=== PATIENT | male | born 1985 | race Caucasian/White ===

== ENCOUNTER 2016-09-26 13:56 | Emergency (ER) | payer SELFPAY ==
[2016-09-26 14:38] LABS: Hematocrit 44.7 % (42.0-52.0); Hemoglobin 14.8 gm/dL (13.5-18.0); Mean Cell Volume 88.3 fl (78-100); Mean Corpuscular Hemoglobin 29.2 pg (27-31); Mean Corpuscular Hgb Conc 33.1 g/dl (32-36); Mean Platelet Volume 9.9 fl (6.0-9.5); Neutrophil # 8.8 K/mm3 (1.3-6.0); Neutrophil % 72.5 % (42-75.0); Platelet Count 346 K/mm3 (150-450); Red Blood Count 5.06 M/mm3 (4.7-6.0); Red Cell Distribution Width 13.7 % (11.5-14.0); White Blood Count 12.2 K/mm3 (4.0-10.5)
[2016-09-26 14:40] LABS: Urine Bilirubin Negative (NEGATIVE); Urine Blood Negative /ul (NEGATIVE); Urine Ketone Negative (NEGATIVE); Urine Nitrite Negative (NEGATIVE); Urine Protein Negative (NEGATIVE); Urine Specific Gravity >=1.030 SP.GR. (1.005-1.030); Urine Urobilinogen Normal (NORMAL)
[2016-09-26 14:47] LABS: Urine Appearance Clear; Urine Bacteria None Seen; Urine Color Yellow; Urine RBC None Seen /hpf (0-5)
--- NOTE | 2016-09-26 14:47 | ERNOTE ---
<Juan J Gastelum - Last Filed: 09/26/16 19:55> Psychological HPI - General Chief Complaint: Psychiatric Problem Source: Reports: patient Exam Limitations: Reports: no limitations - Immun/Allergies/Home Medications Allergies/Adverse Reactions: Allergies No Known Allergies Allergy (Verified 09/26/16 14:40) Home Medications: HOME MEDICATIONS Methylphenidate HCl [Ritalin] 40 mg PO DAILY 09/26/16 [Last Taken Unknown] - History of Present Illness Narrative: Patient presents with depression, very tearful and thoughts of suicide. 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 He is very distraught over this situation as he has 2 daughters at home. Time Seen by Provider: 09/26/16 14:17 Arrived by: Reports: private car Onset/duration: Reports: gradual onset Intent: Reports: suicide - pt has been considering suicide, no prior thoughts- suicide Situational Problems: Reports: spouse Associated Symptoms: Reports: depressed, suicidal thoughts Review of Systems - Review of Systems Constitutional: Present: See HPI EYE: Present: no symptoms reported ENT: Present: no symptoms reported Respiratory: Present: no symptoms reported Cardiology: Present: no symptoms reported Gastrointestinal/Abdominal: Present: no symptoms reported Genitourinary: Present: no symptoms reported Musculoskeletal: Present: no symptoms reported Skin: Present: no symptoms reported Neurological: Present: no symptoms reported Endocrine: Present: no symptoms reported Hematologic/Lymphatic: Present: no symptoms reported Psych: Present: depressed, emotional problems, other - amphetamine abuse by history - Patient's Past Medical History Patient History - Cardiac/Respiratory: No pertinent hx Patient History - Cancer: No Hx of Cancer Patient History - Other: None - Social History Living Situations: other Abuse History: Hx of Substance Use - methamphetamine Psych History: No pertinent hx Smoking Status: Current every day smoker Have you smoked in the past 12 months: Yes Alcohol Use: rarely Drug Use: meth - Immunizations Immunizations Up to Date: Yes Hx Pneumococcal Vaccination: No History of Influenza Vaccine: No Physical Exam - Physical Exam General Appearance: Present: wd/wn, alert, severe distress, crying Eye Exam: Normal inspection: bilateral, PERRL: bilateral Ears, Nose, Throat: Present: normal ENT inspection, H, normal pharynx Neck: Present: normal inspection, nontender Respiratory: Present: no respiratory distress, normal breath sounds, no accessory muscle use, chest nontender, lungs clear Cardiovascular/Chest: Present: regular rate, rhythm, no murmur, normal peripheral pulses Gastrointestinal/Abdominal: Present: normal bowel sounds, nontender, nondistended, soft, no organomegaly Rectal Exam: Present: deferred Back Exam: Present: normal inspection, normal range of motion Extremity Exam: Present: normal inspection, non-tender, no edema, normal range of motion Neurological Exam: Present: alert, oriented, other - pt is depressed and tearful Skin Exam: Present: normal color, warm/dry Lymphatic Exam: Present: no adenopathy ED Progress - Results and Orders Patient's Lab Results:: I have reviewed the patient's lab results. - Vital Signs Patient's Vital Signs:: I have reviewed the patient's vital signs. Vital Signs: Vital Signs 09/26/16 14:01 Temperature 36.7 C Pulse Rate 82 Respiratory 16 Rate Blood Pressure 137/64 O2 Sat by Pulse 96 Oximetry - Progress/Reassessment Chief Complaint: Psychiatric Problem Progress:: Re-examined Progress Note-Subjective: 09/26/16 18:51 He had a counselor from [facility] may come and examine the patient as well as talked to the mother. Patient indicated to both the counselor, Cynthia, and the mother that he is still considering suicide. Mother related that he had a younger sister who committed suicide approximately 10 years ago so there is a strong family history of suicide and suicidal ideation. Patient will need to be admitted to an inpatient unit for further evaluation and probably starting some form of medication to help with his depression. Patient may very well need to be a court ordered committal and we are calling around to find where he can get a bed and get the treatment that he requires. He did have a court date today where he was charged with domestic abuse and has a no contact order brought by his and this is the stress over the precipitated all these events today. - Transfer of Care Physician Sign Out: Juan J Gastelum Receiving Physician: Epifanio Good Plan - Plan Plan: We are starting to call around to find the closest facility where the patient can be admitted and evaluated by psychiatric services. Upon finding a facility that will take him I suspect will have to go forward with a court ordered committal as he has shown some desire to leave the ED. His mother does not feel comfortable taking him home at this point and she is also requesting that he get at least a psychiatric evaluation and started on some medications. Departure Clinical Impression: Suicidal ideation, Substance abuse in remission Depression Qualifiers: Depression Type: reactive depression Qualified Code(s): F32.9 - Major depressive disorder, single episode, unspecified - Departure Disposition: [facility] Condition: Good <Epifanio Good - Last Filed: 09/26/16 23:58> ED Progress - Vital Signs Vital Signs: Vital Signs 09/26/16 18:56 Temperature 36.7 C Pulse Rate 80 Respiratory 16 Rate Blood Pressure 129/64 O2 Sat by Pulse 97 Oximetry - Progress/Reassessment Progress Note-Subjective: 09/26/16 22:[address] Rene at [facility]. Pt sleeping, awakes with minimal tactile stimuli. Awake and alert, he denies complaints. I notified him of upcoming transfer. 09/26/16 23:53 Received a call from [facility] stating that the patient told them that he is not there voluntarily and would like to leave. I spoke with the ER Doctor there and upon further review of the chart Dr. Gastelum did feel that the patient needed a court committal as well as the [facility] counselor thought the same as well. I called Judge Darden and he agreed with a 48 hour hold for psychiatric evaluation. We called [facility] and the patient was still there in the facility. I relayed the 48 hour hold authorized by Judge Darden and that we would forward written order in the am when received from Judge Darden.
[2016-09-26 14:51] LABS: Cocaine Ur Negative (NEGATIVE); Urine Barbiturate Negative (NEGATIVE); Urine Benzodiazepines Negative (NEGATIVE); Urine Opiates Negative (NEGATIVE); Urine PCP Negative (NEGATIVE); Urine THC Negative (NEGATIVE)
[2016-09-26 14:58] LABS: ALT 53 U/L (19-67); AST 18 U/L (0-48); Albumin * 3.9 gm/dl (3.4-5.0); Alkaline Phosphatase * 80 U/L (50-170); Anion Gap 13.5 mmol/L (6.8-13.8); BUN/Creatinine Ratio 15.2 (9.0-21.6); Bilirubin, Total 0.2 mg/dL (0.0-1.1); Blood Urea Nitrogen 14 mg/dL (6-23); Ca. Corrected For Albumin 8.9 mg/dL (8.4-10.2); Calcium * 9.1 mg/dL (7.9-10.9); Carbon Dioxide 26.4 mmol/L (24-32.6); Chloride 104 mmol/L (97-106); Glucose * 95 mg/dL (70-110); Potassium 3.9 mmol/L (3.4-4.6); Salicylate 3.3 mg/dL (2.8-20.0); Sodium 140 mmol/L (132-142); Total Protein 7.1 gm/dL (6.2-8.2)
[2016-09-26 22:43] VITALS: BP 109/75
== END 2016-09-26 22:43 | disposition short-term general hospital (02) ==
LOC: ER 13:56
DX: R45.851 Suicidal ideations (principal); F15.21 Other stimulant dependence, in remission; F32.9 Major depressive disorder, single episode, unspecified
CPT/HCPCS: 36415; 80053; 80307; 81001; 84443; 85025; 93005; 99285; G0480; G0481

== ENCOUNTER 2016-12-13 16:24 | Emergency (ER) | payer BC ==
[2016-12-13] MEDS ORDERED: AZITHROMYCIN 250 MG TABLET ONE (16:38)
[2016-12-13] MEDS ORDERED: AZITHROMYCIN 250 MG TABLET PO ONE (16:40)
--- NOTE | 2016-12-13 16:46 | ERNOTE ---
ER Male HPI Stated Complaint: UNKNOWN ER Male: other Time Seen by Provider: 12/13/16 16:33 Source: patient Exam Limitations: no limitations Immunizations: IMMUNIZATION HX Immunizations Up to Date Yes History of Influenza Vaccine No Hx Pneumococcal Vaccination No Allergies/Adverse Reactions: Allergies No Known Allergies Allergy (Verified 12/13/16 16:31) Home Medications: HOME MEDICATIONS Methylphenidate HCl [Ritalin] 40 mg PO DAILY 09/26/16 [Last Taken Unknown] - History of Present Illness Narrative: Patient's girlfriend was diagnosed with either Gonorrhea or chlamydia this morning. They have had unprotected intercourse for a couple of months. Patient has no symptoms but would like to be treated due to the exposure Review of Systems - Review of Systems Constitutional: Absent: recent illness, fever ENT: Present: no symptoms reported Respiratory: Absent: shortness of breath, cough Cardiology: Absent: chest pain Gastrointestinal/Abdominal: Absent: nausea, vomiting, diarrhea, abdominal pain Genitourinary: Present: See HPI. Absent: frequency, dysuria, discharge Musculoskeletal: Absent: back pain Neurological: Absent: headache - Patient's Past Medical History Patient History - Medical: Depression Patient History - Cardiac/Respiratory: No pertinent hx Patient History - Cancer: No Hx of Cancer Patient History - Surgical Procedures: Other Patient History - Other: None - Social History Living Situations: home Abuse History: Hx of Substance Use Psych History: Hx of Depression Alcohol Use: none Drug Use: none, meth - sober for over four months, went to rehab, attending meetings - Immunizations Immunizations Up to Date: Yes Hx Pneumococcal Vaccination: No History of Influenza Vaccine: No Physical Exam - Physical Exam General Appearance: Present: wd/wn, alert, no apparent distress Respiratory: Present: no respiratory distress, normal breath sounds, lungs clear Cardiovascular/Chest: Present: regular rate, rhythm, no murmur Neurological Exam: Present: alert, oriented, normal mood/affect Skin Exam: Present: normal color, warm/dry ED Progress - Vital Signs Patient's Vital Signs:: I have reviewed the patient's vital signs. Vital Signs: Vital Signs 12/13/16 16:26 Temperature 36.4 C L Pulse Rate 82 Respiratory 12 Rate Blood Pressure 137/79 O2 Sat by Pulse 98 Oximetry - Progress/Reassessment Chief Complaint: Genitourinary Problem Departure Clinical Impression: STD exposure - Departure Disposition: Home self-care Condition: Good Instructions: Gonorrhea Referrals: Jasmin Killian DO [Staff Physician] -
[2016-12-14 16:31] VITALS: BP 137/79
== END 2016-12-13 16:52 | disposition home or self-care (01) ==
LOC: ER 16:24
DX: Z20.2 Contact with and (suspected) exposure to infections with a predominantly sexual mode of transmission (principal)